=== PATIENT | female | born 1935 | race Caucasian/White ===

== ENCOUNTER 2018-02-09 10:45 | Emergency (ER) | payer MEDICARE | END 2018-02-09 12:00 | disposition home or self-care (01) | LOC: EDH 10:45 | DX: S70.02XA Contusion of left hip, initial encounter (principal); I10 Essential (primary) hypertension; E78.00 Pure hypercholesterolemia, unspecified; Z88.5 Allergy status to narcotic agent; W01.0XXA Fall on same level from slipping, tripping and stumbling without subsequent striking against object, initial encounter; Y93.89 Activity, other specified; Y92.89 Other specified places as the place of occurrence of the external cause; Y99.8 Other external cause status | CPT/HCPCS: 73521 ==

== ENCOUNTER 2020-11-30 12:54 | Emergency (ER) | payer OTHER, MEDICARE ==
[2020-11-30] MEDS ORDERED: HYDROCODONE/ACETAMINOPHEN 10/325 MG TAB ONE (13:39)
== END 2020-11-30 15:24 | disposition home or self-care (01) ==
LOC: EDH 12:54
DX: M54.5 Low back pain (principal); E78.00 Pure hypercholesterolemia, unspecified; I10 Essential (primary) hypertension; Z88.5 Allergy status to narcotic agent; W18.39XA Other fall on same level, initial encounter; Y93.89 Activity, other specified; Y92.89 Other specified places as the place of occurrence of the external cause; Y99.8 Other external cause status
CPT/HCPCS: 76775

== ENCOUNTER → 2020-11-30 | Outpatient (CLI) | payer OTHER, MEDICARE | END | disposition home or self-care (01) | LOC: RAH 11:22 | PROVIDERS: ATTEND Internal Medicine | DX: M25.552 Pain in left hip (principal); R55 Syncope and collapse; W19.XXXA Unspecified fall, initial encounter; Y93.89 Activity, other specified; Y92.89 Other specified places as the place of occurrence of the external cause; Y99.8 Other external cause status | CPT/HCPCS: 70450; 72192 ==

== ENCOUNTER → 2022-10-28 | Outpatient (CLI) | payer OTHER, MEDICARE ==
[~2022-10-28] MED LIST: ALBU6.7H14 IH; AMLO-257 PO; APIX2.5T PO; CLON0.252 PO; CLOP-31 PO; DULO60CA64 PO; IOHEXOL 350 MG/ML 100ML INFUS..BTL IV ONE; LEVAQ PO; LOSA1TAB37 PO; LOVA20TA3 PO; METO-408 PO; NITR0.4T50 SL; RANO500T2 PO
== END | disposition home or self-care (01) ==
LOC: RAH 09:40
PROVIDERS: ATTEND Internal Medicine Cardiovascular Disease
DX: I80.201 Phlebitis and thrombophlebitis of unspecified deep vessels of right lower extremity (principal); I71.40 Abdominal aortic aneurysm, without rupture, unspecified; Z95.828 Presence of other vascular implants and grafts; R16.0 Hepatomegaly, not elsewhere classified; R60.0 Localized edema
CPT/HCPCS: 74174; 93971; Q9967

== ENCOUNTER → 2023-11-25 | Outpatient (CLI) | payer OTHER, MEDICARE ==
[~2023-11-25] MED LIST changes: -IOHEXOL 350 MG/ML 100ML INFUS..BTL IV ONE
== END | disposition home or self-care (01) ==
LOC: SHCH 10:30
PROVIDERS: ATTEND Internal Medicine Cardiovascular Disease
DX: I65.23 Occlusion and stenosis of bilateral carotid arteries (principal); R55 Syncope and collapse; Z79.899 Other long term (current) drug therapy
CPT/HCPCS: 93880

== ENCOUNTER → 2023-12-19 | Outpatient (CLI) | payer OTHER, MEDICARE ==
[2023-12-19] MEDS: REGADENOSON 0.4 MG/5 ML PF SYG IVP ONE (13:56)
== END | disposition home or self-care (01) ==
LOC: SHCH 08:42
PROVIDERS: ATTEND Internal Medicine Cardiovascular Disease
DX: I47.20 Ventricular tachycardia, unspecified (principal); R07.9 Chest pain, unspecified; R55 Syncope and collapse; R07.89 Other chest pain
CPT/HCPCS: 78452; 93017; J2785; A9500 ×2; 96374